=== PATIENT | male | born 1950 | race Caucasian/White ===

== ENCOUNTER 2019-08-29 16:00 | Emergency (ER) | payer MEDICARE, OTHER ==
[~2019-08-29] VITALS: Ht 175.3 cm; Wt 97.7 kg
[2019-08-29 16:01] VITALS: BP 149/93
[2019-08-29 16:59] LABS: EOS % 0.4 % (0.0-4.0); HEMATOCRIT 56.2 % (42.0-52.0); HEMOGLOBIN 18.8 g/dL (13.5-18.0); LYMPH# 0.9 (1.50-4.00); MEAN CELL VOLUME 88 fl (78-100); MEAN CORPUSCULAR HEMOGLOBIN 29 pg (27-31); MEAN CORPUSCULAR HGB CONC 34 g/dL (33-37); MEAN PLATELET VOLUME 10.6 fl (7.4-10.4); MONO # 0.7 (0.20-0.80); NEU # 5.2 (1.40-6.50); PLATELET COUNT 206 K/mm3 (130-400); RED BLOOD COUNT 6.39 M/mm3 (4.20-5.60); RED CELL DISTRIBUTION WIDTH 13.7 % (11.5-14.5); WHITE BLOOD COUNT 6.8 K/mm3 (4.8-10.8)
[2019-08-29 17:23] LABS: D-DIMER 1.07 mg/L FEU (0.15-0.50)
[2019-08-29 17:34] LABS: SODIUM 133 mmol/L (136-145)
[2019-08-29 17:35] LABS: ALBUMIN 3.1 g/dL (3.4-4.8)
[2019-08-29 17:36] LABS: CALCIUM 8.1 mg/dL (8.3-10.5)
[2019-08-29 17:37] LABS: TOTAL PROTEIN 7.2 g/dL (6.2-8.1)
[2019-08-29 17:38] LABS: CARBON DIOXIDE 20 mmol/L (23-31); GLUCOSE 89 mg/dL (75-110)
[2019-08-29 17:42] LABS: AST-SGOT 40 U/L (5-34)
[2019-08-29 17:45] LABS: ALT/SGPT 37 U/L (0-55)
[2019-08-29 17:51] LABS: TROPONIN-I < 0.03 ng/mL (<0.030)
== END 2019-08-29 18:51 | disposition left against medical advice (07) ==
LOC: ED 16:00
PROVIDERS: Nurse Practitioner Family
DX: J18.9 Pneumonia, unspecified organism (principal); R09.02 Hypoxemia; Z20.828 Contact with and (suspected) exposure to other viral communicable diseases
CPT/HCPCS: J7030